=== PATIENT | male | born 1975 ===

== ENCOUNTER 2017-10-19 15:55 | Emergency (ER) | payer SELFPAY ==
[2017-10-19] MEDS ORDERED: Sodium Chloride 0.9% 1,000 ML IV STA (16:25)
[2017-10-19] MEDS ORDERED: Morphine 4 MG/ML VIAL ONE (16:29)
--- NOTE | 2017-10-19 16:29 | C.PDOC ---
History Of Present Illness 42 year old male who presents to the ED complaining of non radiating LLQ, severe sharp abdominal pain with associated non bloody, non bilious vomiting and nausea, onset 1 day. He denies fever, dysuria, hematuria or diarrhea. PMD: Dr. Ezio Morfin MD Time Seen by Provider: 10/19/17 16:21 Chief Complaint (Nursing): Abdominal Pain Past Medical History Reviewed: Historical Data, Nursing Documentation, Vital Signs Vital Signs: Last Vital Signs Temp 98.6 F 10/19/17 18:36 Pulse 57 L 10/19/17 18:36 Resp 20 10/19/17 18:36 BP 112/67 10/19/17 18:36 Pulse Ox 100 10/19/17 20:15 - Medical History PMH: No Chronic Diseases Family History: States: No Known Family Hx - Social History Hx Alcohol Use: No Hx Substance Use: No - Immunization History Hx Tetanus Toxoid Vaccination: No Hx Influenza Vaccination: No Hx Pneumococcal Vaccination: No Review Of Systems Constitutional: Negative for: Fever Genitourinary: Negative for: Dysuria Physical Exam - Physical Exam Additional Physical Exam Comments: Constitutional: Appears to be in some distress secondary to pain. Head: Normocephalic. Atraumatic. Eyes: PERRL. ENT: Moist mucous membranes. Neck: Supple. Cardiovascular: Regular rate. Radial pulse 2+ bilaterally. Chest: No tenderness. Respiratory: Clear to auscultation bilaterally. GI: Left lower quadrant tenderness with guarding. : No testicular tenderness or swelling. Back: No CVA tenderness. Musculoskeletal: No tenderness or swelling. Skin: No rash. Neurologic: Alert, no focal deficit. ED Course And Treatment - Laboratory Results Result Diagrams: 10/19/17 16:33 10/19/17 16:33 O2 Sat by Pulse Oximetry: 100 Medical Decision Making Medical Decision Making: Time: 20:10 Abd/Pelvis CT FINDINGS: Lower thorax: No acute findings. ABDOMEN: Liver: There is a diffuse mild decrease in hepatic parenchymal density, consistent with mild fatty infiltration. Gallbladder and bile ducts: Unremarkable. No calcified stones. No ductal dilation. No significant wall thickening. Pancreas: Unremarkable. No mass. No ductal dilation. Spleen: Unremarkable. No splenomegaly. Adrenals: Unremarkable. No mass. Kidneys and ureters: Unremarkable. No solid mass. No hydronephrosis. Stomach and bowel: Mild thickening of the transverse colon and descending colon. Mild pericolic stranding involving the sigmoid region. No evidence of diverticular disease. Small bowel loops appear within normal limits, no signs of wall thickening, mucosal edema, or bowel distention. Appendix: The appendix is not definitively visualized. However, no secondary signs of appendicitis are present. PELVIS: Bladder: Unremarkable. No mass. Reproductive: Unremarkable as visualized. ABDOMEN and PELVIS: Intraperitoneal space: Unremarkable. No free air. No significant fluid collection. Bones/joints: No acute fracture. No dislocation. Soft tissues: Unremarkable. Vasculature: Unremarkable. No abdominal aortic aneurysm. Lymph nodes: Unremarkable. No enlarged lymph nodes. IMPRESSION: Findings suggesting mild descending colitis. No signs of diverticulitis. Mild hepatic steatosis. No obstructive uropathy. Patient pain much improved. Will discharge home, f/u PMD, return to ED for worsening pain, fever, vomiting, dyspnea. Disposition - Disposition Referrals: Ezio Morfin MD [Staff Provider] - Disposition: HOME/ ROUTINE Disposition Time: 20:17 Condition: STABLE Prescriptions: levoFLOXacin [Levaquin] 1 tab PO DAILY #10 tab Metronidazole [Flagyl] 500 mg PO Q8 #30 tab Ondansetron ODT [Zofran ODT] 4 mg PO Q8 #12 odt Instructions: Colitis (ED) Forms: [facility] ([place]), Gen Discharge Inst [place] - Clinical Impression Clinical Impression: Colitis
[2017-10-19] MEDS ORDERED: Sodium Chloride 0.9% 1,000 ML ONE (16:30)
[2017-10-19 16:37] LABS: BASO # 0.1 K/uL (0.0-0.2); BASO % 0.7 % (0.0-2.0); EOS # 0.6 K/uL (0.0-0.7); EOS % 3.9 % (0.0-4.0); HEMATOCRIT 45.5 % (35.0-51.0); LYMPH # 1.8 K/uL (1.0-4.3); LYMPH % 12.4 % (20.0-40.0); MEAN CELL VOLUME 89.4 fL (80.0-94.0); MEAN CORPUSCULAR HEMOGLOBIN 30.8 pg (27.0-31.0); MEAN CORPUSCULAR HGB CONC 34.5 g/dL (33.0-37.0); MEAN PLATELET VOLUME 8.1 fL (7.2-11.7); MONO # 0.7 K/uL (0.0-0.8); MONO % 4.9 % (0.0-10.0); RED CELL DISTRIBUTION WIDTH 12.8 % (11.5-14.5); WHITE BLOOD COUNT 14.8 K/uL (4.8-10.8)
[2017-10-19 16:49] LABS: RBC URINE 1 /hpf (0-3); URINE BILIRUBIN NEGATIVE (NEGATIVE); URINE BLOOD NEGATIVE (NEGATIVE); URINE COLOR Yellow (YELLOW); URINE GLUCOSE (UA) 2+ mg/dL (Normal); URINE KETONE NEGATIVE (NEGATIVE); URINE LEUKOCYTE ESTERASE NEG Leu/uL (Negative); URINE PROTEIN NEGATIVE (NEGATIVE); URINE UROBILINOGEN NORMAL mg/dL (0.2-1.0); WBC URINE < 1 /hpf (0-5)
[2017-10-19 16:53] LABS: ALKALINE PHOSPHATASE 75 U/L (38-126); ALT/SGPT 43 U/L (21-72); AST/SGOT 31 U/L (17-59); BILIRUBIN,TOTAL 0.9 mg/dL (0.2-1.3); BLOOD UREA NITROGEN 13 mg/dL (9-20); CALCIUM 8.8 mg/dl (8.6-10.4); CARBON DIOXIDE 31 mmol/L (22-30); CHLORIDE 98 mmol/L (98-107); GFR AFRICAN-AMERICAN > 60; GLUCOSE,RANDOM 183 mg/dL (75-110); POTASSIUM 3.8 mmol/L (3.6-5.2); SODIUM 138 mmol/L (132-148)
[2017-10-19 17:06] LABS: ALB/GLOB RATIO 1.1 (1.0-2.1)
[2017-10-19 18:37] VITALS: RESP 20
[2017-10-19] MEDS ORDERED: Iodixanol 320 MG/ML 100 ML BOTTLE IV ONE (19:21)
[2017-10-19 20:34] VITALS: BP 119/71; PULSE 59; TEMP 98.1; O2SAT 99
--- NOTE | 2017-10-20 09:50 | CT ---
CT abdomen and pelvis History: Left lower quadrant abdominal pain. Comparison: None available. Technique: Axial computed tomographic images were performed through the abdomen and pelvis with the use of intravenous contrast. Subsequently, sagittal and coronal reformatted images were obtained. This CT exam was performed using one or more of the following dose reduction techniques: Automated exposure control, adjustment of the mA and/or kV according to patient size, and/or use of iterative reconstruction technique. Findings: Lung bases are clear. Fatty infiltration of the liver. Gallbladder is preserved. Diminutive spleen. Adrenal glands are preserved. Pancreas is preserved. Upper abdominal bowel is preserved. Right kidney: No calculi or hydronephrosis. Left Kidney: No calculi or hydronephrosis. Urinary bladder is grossly preserved. Prostate and seminal vesicles are grossly preserved. Mild thickening of the transverse and descending colon. Few scattered diverticuli. Mild pericolic stranding involving the sigmoid region. Small bowel loops appear grossly preserved. Appendix is not definitely visualized. Shotty para-aortic and mesenteric lymph nodes. Degenerative changes in the spine. Impression: Findings concerning for a possible mild descending colitis. Clinical correlation. Fatty infiltration liver. Additional findings as above. These findings were preliminarily reported at 8:09 p.m. on 10/19/[address] Amber Beebe from [employer].
== END 2017-10-19 21:05 | disposition home or self-care (01) ==
LOC: C.ER 15:55
DX: K52.9 Noninfective gastroenteritis and colitis, unspecified (principal)
CPT/HCPCS: 74177; 80053; 81001; 83690; 85025; 87086; 96361; 96374; 96375; 99285; J2270; J2405; J7040; Q9967